=== PATIENT | female | born 1945 | race Caucasian/White ===

== ENCOUNTER → 2016-08-20 | Outpatient (CLI) | payer MEDICARE, MEDICAID ==
[~2016-08-20] MED LIST: CIPRO 500MG TA500 MG PO; COMBIVENT RESPI1 SPR IH; LEVSIN0.125 M1 PO; NICODERM C21 MG/24 H TD; PREDNISONE 20MG20 MG PO; SYMBICORT1 AE1 IH; TESSALON PERLE100 MG PO; TRAMADOL 50MG T50 MG PO
[2016-08-20 10:13] LABS: HEMOGLOBIN 14.4 g/dL (12.2-16.2); LYMPH # 1.4 K/mm3 (0.7-4.5); LYMPH % 25.4 % (10-50.0)
[2016-08-20 11:23] LABS: BUN 11 mg/dL (7-18)
[2016-08-20 11:27] LABS: GFR (ESTIMATED) 82 ML/MIN (59-)
== END ==
LOC: LAB 10:02
PROVIDERS: Nurse Practitioner Family
DX: I49.9 Cardiac arrhythmia, unspecified (principal); I10 Essential (primary) hypertension

== ENCOUNTER 2016-12-11 17:30 | Emergency (ER) | payer MEDICARE, MEDICAID ==
[~2016-12-11] VITALS: Ht 162.6 cm; Wt 56.2 kg
--- OUTSIDE RECORDS SUMMARY | 2016-12-11 17:36 | External Medical Summary Rpt ---
Author Author [employer] Organization [employer] Address Unknown Phone Unavailable Purpose Continuity of Care Document - through 2016
--- OUTSIDE RECORDS SUMMARY | 2016-12-11 17:36 | External Medical Summary Rpt ---
Demographics Preferred Language Rwandan Marital Status Unknown Sabianism Affiliation Unknown Race Unknown Ethnic Group Unknown Author Author , Organization [employer] Address Unknown Phone Unavailable Purpose Continuity of Care Document - through 2016 Immunization No patient found.
--- OUTSIDE RECORDS SUMMARY | 2016-12-11 17:36 | External Medical Summary Rpt ---
Author Author [employer] Greer, [employer] Organization [employer] Address Unknown Phone Unavailable
--- OUTSIDE RECORDS SUMMARY | 2016-12-11 17:36 | External Medical Summary Rpt ---
Demographics Preferred Language Finnish Marital Status Unknown Moravian Affiliation Unknown Race Unknown Ethnic Group Unknown Author Author , Organization [employer] Address Unknown Phone Unavailable Purpose Continuity of Care Document - through 2016 Immunization No patient found.
--- OUTSIDE RECORDS SUMMARY | 2016-12-11 17:36 | External Medical Summary Rpt ---
Author Author , Organization [employer] Address Unknown Phone Unavailable Purpose Continuity of Care Document - 11-23-2016 through 2016 Problems Code Diagnosis DOS Provider Status K76.89 OTHER 11-23-2016 SPECIFIED DISEASES OF LIVER
[2016-12-11] MEDS ORDERED: ZITHROMAX Z PA250 MG PO (17:57)
[2016-12-11] MEDS ORDERED: MEDROL 4MG. DOSE4 MG PO (17:57)
--- NOTE | 2016-12-11 17:58 | Urgent Treatment Center Report ---
History of Present Issue Date/Time Seen by Provider 12/11/16 6298 Visit Reason Pt arrived:Walked Presenting Problem:PT STATES SHE BEGAN FEELING BAD MONDAY. STATES ACHES, LEG WEAKNESS, RIGHT RIB PAIN FROM COUGHING, PRODUCTIVE COUGH. STATES NOT EATING WELL DUE TO COUGH AND DRY HEAVES FROM COUGHING. ALSO STATES RUNNY NOSE AND HEADACHE. Location if Accident: Onset of symptoms date/time:/ or onset unknown for:MEDICAL HX UNKNOWN Have you (or family members/close friends) recently traveled outside the [place]? N If Yes, where/when: Have you had exposure to infectious disease within the past month? TB? Other? Specify: Patient state that she has not felt well in a couple of days, states that she just feels achy all over States that she has been havig a dry cough and it makes her hurt sometimes in her ribs. States that she has been having runny nose and headache State that she has been blowing "green snot" for several days now and continues to feel worse so she thought she better come in and get checked ALLERGIES Coded Allergies: No Known Allergies (07/31/15) Home Medications Reported Medications BUDESONIDE/FORMOTEROL FUMARATE (Symbicort 160-4.5 Mcg Inhaler) 1 PUFF IH BID #10 ALBUTEROL/IPRATROPIUM (Combivent Respimat Inhal Smilax) 1 PUFF IH DAILY #4 History Medical History General CAD? No Angina: No [place]: No Hypertension? Yes Hyperlipidemia? No CHF? No DVT? No PE? No COPD? Yes Asthma? Yes Anemia? No GERD? No Gastric ulcers? No GI Bleed? No Hernia? Yes Thyroid Problems? No Hypothyroidism? No CVA? No Seizures? No Diabetes? No Renal Insuffiency? No UTI? No Stones? No BPH? No GB Disease: No Nephritic Syndrome? No Asplenia? No Hepatitis? No Sickle Cell Disease? No Arthritis? No Migraines? No Cataracts? No Glaucoma? No MRSA? No HIV? No TB? No Anxiety? No Depression? No Cancer? No More? Yes Additional hx: PLEURISY, ASTHMA Immunization HX DT/Tetanus UNKNOWN Flu 2014-16FSN Pneumonia Received In Past Surgical Hx Previous Surgery?Y BACK SX 2009 HYSTERECTOMY Hernia Repair Family History Family HX Diabetes No CAD Yes Hypertension No Hyperlipidemia No Cancer Yes TB No Social History Smoking Hx Smoker: Current Every Day Smoker Tobacco: Yes Type Cigarettes Packs/day < 1 Pack Alcohol Alcohol: No Review of Systems All Other Systems Reviewed and Negative Constitutional fever ENT nose discharge, nose congestion, throat pain. Respiratory cough Comment cough, congestion, nasal drainage for several days that has not improved Physical Exam Vital Signs Vital Signs Date Time Temp Pulse Resp B/P Pulse O2 O2 Flow FiO2 Ox Delivery Rate 12/11 1739 101.4 110 20 122/71 92 General Appearance normal appearance, WD/WN, no apparent distress Ear, Nose, Throat sinus pain/drainage, nasal congestion, throat red, irritated, greenish yellow drainage from nose Respiratory Status Yes: trachea midline, chest symmetrical, non tender chest. No: respiratory distress. 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 Patient aware of importance and still refused Medical Decision Making LABS/Meds/Orders Pt receiving controlled substance in ED? No Departure Departure Time of Disposition 1754 Disposition DC Home or Self Care(routine) Clinical Impression Primary Impression: Upper respiratory infection Qualifiers: URI type: unspecified URI Qualified Code: J06.9 - Acute upper respiratory infection, unspecified Condition STABLE Referrals Birdie SHARMA,Cayetano Olson (Family): 3 Days-Call Office if no improvement in symptoms Patient Instructions Cough, DI for Nasal Congestion Additional Instructions * Monitor Temp. Tylenol and/or Ibuprofen as needed. ER if fever is no less than 101 despite alternating Tylenol and Ibuprofen * Encourage fluids, water, Gatorade, powerade * Warm salt water gargles for throat irritation *Warm fluids *Sore throat lozenges *Sleep elevated *humidifier or vaporizer Follow up IMMEDIATELY for new or worsening of symptoms OR no noticeable improvement over the next 48-72 hours. 911 immediately for any life threatening symptoms such as chest pain or difficulty breathing Discharge Counseling Counseled pt/family regarding diagnosis, test results, medications/RX, home care, follow up needs Prescriptions Current Visit Scripts Azithromycin (Zithromycin (Z-SVEN) 250MG Tab) 250 MG PO DAILY #6 TAB TAKE TWO (2) TABLETS ON DAY 1, THEN ONE (1) TABLET DAY #2 THRU #5 Methylprednisolone (Medrol Dose Sven) 4 MG PO UD #1 SVEN TAKE DIRECTED ON PACKAGING at 1806
--- NOTE | 2016-12-11 17:58 | Urgent Treatment Center Report ---
History of Present Issue Date/Time Seen by Provider 12/11/16 0492 Visit Reason Pt arrived:Walked Presenting Problem:PT STATES SHE BEGAN FEELING BAD MONDAY. STATES ACHES, LEG WEAKNESS, RIGHT RIB PAIN FROM COUGHING, PRODUCTIVE COUGH. STATES NOT EATING WELL DUE TO COUGH AND DRY HEAVES FROM COUGHING. ALSO STATES RUNNY NOSE AND HEADACHE. Location if Accident: Onset of symptoms date/time:/ or onset unknown for:MEDICAL HX UNKNOWN Have you (or family members/close friends) recently traveled outside the [place]? N If Yes, where/when: Have you had exposure to infectious disease within the past month? TB? Other? Specify: Patient state that she has not felt well in a couple of days, states that she just feels achy all over States that she has been havig a dry cough and it makes her hurt sometimes in her ribs. States that she has been having runny nose and headache State that she has been blowing "green snot" for several days now and continues to feel worse so she thought she better come in and get checked ALLERGIES Coded Allergies: No Known Allergies (07/31/15) Home Medications Reported Medications BUDESONIDE/FORMOTEROL FUMARATE (Symbicort 160-4.5 Mcg Inhaler) 1 PUFF IH BID #10 ALBUTEROL/IPRATROPIUM (Combivent Respimat Inhal [place]) 1 PUFF IH DAILY #4 History Medical History General CAD? No Angina: No [place]: No Hypertension? Yes Hyperlipidemia? No CHF? No DVT? No PE? No COPD? Yes Asthma? Yes Anemia? No GERD? No Gastric ulcers? No GI Bleed? No Hernia? Yes Thyroid Problems? No Hypothyroidism? No CVA? No Seizures? No Diabetes? No Renal Insuffiency? No UTI? No Stones? No BPH? No GB Disease: No Nephritic Syndrome? No Asplenia? No Hepatitis? No Sickle Cell Disease? No Arthritis? No Migraines? No Cataracts? No Glaucoma? No MRSA? No HIV? No TB? No Anxiety? No Depression? No Cancer? No More? Yes Additional hx: PLEURISY, ASTHMA Immunization HX DT/Tetanus UNKNOWN Flu 2014-16FSN Pneumonia Received In Past Surgical Hx Previous Surgery?Y BACK SX 2009 HYSTERECTOMY Hernia Repair Family History Family HX Diabetes No CAD Yes Hypertension No Hyperlipidemia No Cancer Yes TB No Social History Smoking Hx Smoker: Current Every Day Smoker Tobacco: Yes Type Cigarettes Packs/day < 1 Pack Alcohol Alcohol: No Review of Systems All Other Systems Reviewed and Negative Constitutional fever ENT nose discharge, nose congestion, throat pain. Respiratory cough Comment cough, congestion, nasal drainage for several days that has not improved Physical Exam Vital Signs Vital Signs Date Time Temp Pulse Resp B/P Pulse O2 O2 Flow FiO2 Ox Delivery Rate 12/11 1739 101.4 110 20 122/71 92 General Appearance normal appearance, WD/WN, no apparent distress Ear, Nose, Throat sinus pain/drainage, nasal congestion, throat red, irritated, greenish yellow drainage from nose Respiratory Status Yes: trachea midline, chest symmetrical, non tender chest. No: respiratory distress. 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 Patient aware of importance and still refused Medical Decision Making LABS/Meds/Orders Pt receiving controlled substance in ED? No Departure Departure Time of Disposition 1754 Disposition DC Home or Self Care(routine) Clinical Impression Primary Impression: Upper respiratory infection Qualifiers: URI type: unspecified URI Qualified Code: J06.9 - Acute upper respiratory infection, unspecified Condition STABLE Referrals Birdie SHARMA,Cayetano Olson (Family): 3 Days-Call Office if no improvement in symptoms Patient Instructions Cough, DI for Nasal Congestion Additional Instructions * Monitor Temp. Tylenol and/or Ibuprofen as needed. ER if fever is no less than 101 despite alternating Tylenol and Ibuprofen * Encourage fluids, water, Gatorade, powerade * Warm salt water gargles for throat irritation *Warm fluids *Sore throat lozenges *Sleep elevated *humidifier or vaporizer Follow up IMMEDIATELY for new or worsening of symptoms OR no noticeable improvement over the next 48-72 hours. 911 immediately for any life threatening symptoms such as chest pain or difficulty breathing Discharge Counseling Counseled pt/family regarding diagnosis, test results, medications/RX, home care, follow up needs Prescriptions Current Visit Scripts Azithromycin (Zithromycin (Z-SVEN) 250MG Tab) 250 MG PO DAILY #6 TAB TAKE TWO (2) TABLETS ON DAY 1, THEN ONE (1) TABLET DAY #2 THRU #5 Methylprednisolone (Medrol Dose Sven) 4 MG PO UD #1 SVEN TAKE DIRECTED ON PACKAGING at 1806
[2016-12-11 18:03] VITALS: BP 122/71
[2016-12-13] MEDS ORDERED: SPIRIVA HA1 PUFF/INH IH (23:07)
[2016-12-13] MEDS ORDERED: ASPIRIN 325MG325 MG PO (23:08)
[2016-12-14] MEDS ORDERED: CARVEDILOL6.25 M1 PO (07:33)
[2016-12-14] MEDS ORDERED: AMLO5TAB PO ×2 (07:34→11:12)
[2016-12-14] MEDS ORDERED: ALBUTEROL SULF0.5 ML IH (07:54)
[2016-12-14] MEDS ORDERED: VENTOLIN H0.09 MG/Ac IH (07:55)
== END 2016-12-11 18:04 | disposition home or self-care (01) ==
LOC: UTC 17:30
DX: J06.9 Acute upper respiratory infection, unspecified (principal); I10 Essential (primary) hypertension; Z72.0 Tobacco use; J44.9 Chronic obstructive pulmonary disease, unspecified

== ENCOUNTER 2017-06-09 10:06 | Inpatient (IN) | payer MEDICARE, MEDICAID ==
[~2017-06-09] VITALS: Ht 162.6 cm; Wt 60.9 kg
[~2017-06-09 10:06] MED LIST changes: +ALBUTEROL SULF0.5 ML IH; +AMLO5TAB PO; +ASPIRIN 325MG325 MG PO; +CARVEDILOL6.25 M1 PO; +MEDROL 4MG. DOSE4 MG PO; +SPIRIVA HA1 PUFF/INH IH; +VENTOLIN H0.09 MG/Ac IH; +ZITHROMAX Z PA250 MG PO
[2017-06-09 10:10] VITALS: BP 194/95
[2017-06-09] MEDS ORDERED: AMOXICILLIN 50500 MG PO (10:27)
--- OUTSIDE RECORDS SUMMARY | 2017-06-09 10:39 | External Medical Summary Rpt | CCD ---
Author Author , [employer] Organization [employer] Address Unknown Phone [email or web address] Purpose Continuity of Care Document - 12-13-2016 through 2016 Results Labs Lab Lab Date Result Refere Interp Status Commen Order Detail nces retati t Range on Magnesium SerPl-mCnc (12-20-2016 04:00) Magnesi 2.7 1.9-2.4 complet um 017 mg/dL ed SerPl-m 04:00 Cnc Ca-I SerPl ISE-sCnc (12-20-2016 04:00) Ca-I 4.8 4.6-5.1 complet SerPl 017 mg/dL ed ISE-sCn 04:00 c MDRO Wnd (12-19-2016 17:52) Bacteri NG016 complet a XXX 017 NO ed Anaerob 17:52 GROWTH e+Aerob IN <16 e Cult HOURS. L CC XXX NOTAP complet VC-aCnc 017 NOT ed 17:52 APPLICA BLE L Potassium SerPl-sCnc (12-19-2016 13:26) Potassi 5.1 3.7-4.8 complet um 017 mmol/L ed SerPl-s 13:26 Cnc Magnesium SerPl-mCnc (12-19-2016 04:41) Magnesi 2.6 1.9-2.4 complet um 017 mg/dL ed SerPl-m 04:41 Cnc Vancomycin Trough SerPl-mCnc (12-19-2016 04:41) Vancomy 11.6 10-20 complet kendra 017 ug/mL ed Trough 04:41 SerPl-m Cnc Magnesium SerPl-mCnc (12-18-2016 03:35) Magnesi 2.4 1.9-2.4 complet um 017 mg/dL ed SerPl-m 03:35 Cnc Hgb A1c MFr Bld (12-17-2016 11:20) Hgb A1c 5.6 % 4.7-6.0 complet MFr 017 ed Bld 11:20 Bacteria Bro Dutton Aerobe Cult (12-17-2016 08:30) Bacteri [id number] complet a XXX 017 5 ed Anaerob 08:30 Christina e+Aerob e Cult albican s (organi sm) SCT CALB CHRISTINA ALBICAN S L Bacteria XXX Anaerobe+Aerobe Cult (12-17-2016 07:38) Bacteri [id number] complet a XXX 017 06 No ed Anaerob 07:38 growth e+Aerob (qualif e Cult ier value) SCT NGB4 NO GROWTH DAY 4. L MDRO Wnd (12-17-2016 05:59) Bacteri [id number] complet a XXX 017 06 No ed Anaerob 05:59 growth e+Aerob (qualif e Cult ier value) SCT NG2 NO GROWTH DAY 2. L CC XXX NOTAP complet VC-aCnc 017 NOT ed 05:59 APPLICA BLE L Mycoplasma pneumoniae IgM Ab [Presence] in Serum by Immunoassay (12-15-2016 06:10) Mycopla NON-VIRIDIANA NONREAC complet sma 017 CTIVE TIVE ed pneumon 06:10 iae IgM Ab [Presen ce] in Serum by Immunoa ssay Gas panel in Arterial blood (12-13-2016 23:36) Arteria ACCEPTA complet l 017 BLE ed patency 23:36 Wrist artery --pre arteria l punctur e
--- OUTSIDE RECORDS SUMMARY | 2017-06-09 10:39 | External Medical Summary Rpt | CCD ---
Author Author , [employer] Organization [employer] Address Unknown Phone [email or web address] Purpose Continuity of Care Document - 12-13-2016 [...] MFr 017 ed Bld 11:20 Bacteria Bro Moro Aerobe Cult (12-17-2016 08:30) Bacteri [id number] complet a XXX 017 5 ed Anaerob 08:30 Christina e+Aerob e Cult albican s (organi sm) SCT CALB CHRISTINA ALBICAN S L Bacteria XXX Anaerobe+Aerobe Cult (12-17-2016 07:38) Bacteri [id number] complet a XXX 017 06 No ed Anaerob 07:38 growth e+Aerob (qualif e Cult ier value) SCT NGB4 NO GROWTH DAY 4. L MDRO Wnd (12-17-2016 05:59) Bacteri [id number] complet a XXX 017 06 No ed [...]
--- OUTSIDE RECORDS SUMMARY | 2017-06-09 10:40 | External Medical Summary Rpt | CCD ---
Author Author , [employer]ET[employer] Address Unknown Phone [email or web address] Immunization Name Date Rout CVX Reac Dose Comm Prov Is Faci e tion ent ider Refu lity Give sed n Tdap 11-1 115 999 Hist H201 No H201 , 9-20 oric Adso 13 al rbed Info rmat ion - Sour ce Unsp ecif ied Zost 11-1 121 999 Hist H201 No H201 er 9-20 oric 13 al Info rmat ion - Sour ce Unsp ecif ied Td 03-0 9 999 Hist H149 No H149 (jerica 5-19 oric lt), 97 al Info adso rmat rbed ion - Sour ce Unsp ecif ied
--- OUTSIDE RECORDS SUMMARY | 2017-06-09 10:40 | External Medical Summary Rpt | CCD ---
Author Author , CONNER PRIETO Address Unknown Phone [email or web address] Immunization Name Date Rout CVX Reac Dose [...]
--- OUTSIDE RECORDS SUMMARY | 2017-06-09 10:41 | External Medical Summary Rpt ---
Author Author [facility], [employer] Organization [employer] Address Unknown Phone Unavailable Results UPPER RESPIRATORY PANEL,PCR Observa Value Referen Units Interpr Notes Date tion ce etation Range Adenovi DETECTE NOT No Abnorma No December 15 iraida DNA D DETECTE informa l informa 2017 tion in tion in 10:05 [Presen source source AM ce] in data data Unspeci fied specime n by Probe & target amplifi cation method Bordete NOT NOT No No No December 15 lla DETECTE DETECTE informa informa informa 2017 pertuss D tion in tion in tion in 10:05 is DNA source source source AM [Presen data data data ce] in Unspeci fied specime n by Probe & target amplifi cation method Chlamyd NOT NOT No No No December 15 ophila DETECTE DETECTE informa informa informa 2017 pneumon D tion in tion in tion in 10:05 iae DNA source source source AM data data data [Presen ce] in Unspeci fied specime n by Probe & target amplifi cation method SARS NOT NOT No No No December 15 coronav DETECTE DETECTE informa informa informa 2017 irus D tion in tion in tion in 10:05 RNA source source source AM [Presen data data data ce] in Unspeci fied specime n by Probe & target amplifi cation method Human NOT NOT No No No December 15 coronav DETECTE DETECTE informa informa informa 2017 irus D tion in tion in tion in 10:05 HKU1 source source source AM RNA data data data detecti on by SARS NOT NOT No No No December 15 coronav DETECTE DETECTE informa informa informa 2017 irus D tion in tion in tion in 10:05 RNA source source source AM [Presen data data data ce] in Unspeci fied specime n by Probe & target amplifi cation method SARS NOT NOT No No No December 15 coronav DETECTE DETECTE informa informa informa 2017 irus D tion in tion in tion in 10:05 RNA source source source AM [Presen data data data ce] in Unspeci fied specime n by Probe & target amplifi cation method Influen NOT NOT No No No December 15 za DETECTE DETECTE informa informa informa 2017 virus A D tion in tion in tion in 10:05 H3 RNA source source source AM data data data [Presen ce] in Unspeci fied specime n by Probe & target amplifi cation method Influen NOT NOT No No No December 15 za DETECTE DETECTE informa informa informa 2017 virus A D tion in tion in tion in 10:05 H1 RNA source source source AM data data data [Presen ce] in Isolate by Probe & target amplifi cation method Influen NOT NOT No No No December 15 za DETECTE DETECTE informa informa informa 2017 virus A D tion in tion in tion in 10:05 H1 RNA source source source AM data data data [Presen ce] in Unspeci fied specime n by Probe & target amplifi cation method Influen NOT NOT No No No December 15 za DETECTE DETECTE informa informa informa 2017 virus B D tion in tion in tion in 10:05 RNA source source source AM [Presen data data data ce] in Unspeci fied specime n by Probe & target amplifi cation method Influen NOT NOT No No No December 15 za DETECTE DETECTE informa informa informa 2017 virus A D tion in tion in tion in 10:05 RNA source source source AM [Presen data data data ce] in Unspeci fied specime n by Probe & target amplifi cation method Human NOT NOT No No No December 15 metapne DETECTE DETECTE informa informa informa 2017 umoviru D tion in tion in tion in 10:05 s Ag source source source AM [Presen data data data ce] in Unspeci fied specime n Mycopla NOT NOT No No No December 15 sma DETECTE DETECTE informa informa informa 2017 pneumon D tion in tion in tion in 10:05 iae DNA source source source AM data data data [Presen ce] in Unspeci fied specime n by Probe & target amplifi cation method Parainf NOT NOT No No No December 15 luenza DETECTE DETECTE informa informa informa 2017 virus 1 D tion in tion in tion in 10:05 RNA source source source AM [Presen data data data ce] in Unspeci fied specime n by Probe & target amplifi cation method Parainf NOT NOT No No No December 15 luenza DETECTE DETECTE informa informa informa 2017 virus 2 D tion in tion in tion in 10:05 RNA source source source AM [Presen data data data ce] in Unspeci fied specime n by Probe & target amplifi cation method Parainf NOT NOT No No No December 15 luenza DETECTE DETECTE informa informa informa 2017 virus 3 D tion in tion in tion in 10:05 RNA source source source AM [Presen data data data ce] in Unspeci fied specime n by Probe & target amplifi cation method Parainf NOT NOT No No No December 15 luenza DETECTE DETECTE informa informa informa 2017 virus 4 D tion in tion in tion in 10:05 RNA source source source AM [Presen data data data ce] in Isolate by Probe & target amplifi cation method Rhinovi NOT NOT No No No December 15 iraida+Ent DETECTE DETECTE informa informa informa 2017 eroviru D tion in tion in tion in 10:05 s RNA source source source AM [Presen data data data ce] in Unspeci fied specime n by Probe & target amplifi cation method Respira NOT NOT No No No December 15 tory DETECTE DETECTE informa informa informa 2017 syncyti D tion in tion in tion in 10:05 al source source source AM virus data data data RNA [Presen ce] in Unspeci fied specime n by Probe & target amplifi cation method Mycoplasma pneumoniae IgM Ab [Presence] in Serum by Immunoassay Observa Value Referen Units Interpr Notes Date tion ce etation Range Mycopla NON-VIRIDIANA NONREAC No No No December 15 sma CTIVE TIVE informa informa informa 2017 pneumon tion in tion in tion in 6:10 AM iae IgM source source source Ab data data data [Presen ce] in Serum by Immunoa ssay Basic metabolic panel in Blood Observa Value Referen Units Interpr Notes Date tion ce etation Range Urea 7 - 18 mg/dL No No December 15 nitrogen informati informati 2016 6:10 [Mass/vol on in on in AM ume] in source source Serum or data data Plasma Calcium 8.5 - mg/dL Normal No December 15 [Mass/vol 10.1 informati 2016 6:10 ume] in on in AM Serum or source Plasma data Chloride 98 - 107 mmoL/L Normal No December 15 [Moles/vo informati 2016 6:10 lume] in on in AM Serum or source Plasma data Carbon 21.0 - mmoL/L Normal No December 15 dioxide, 32.0 informati 2016 6:10 total on in AM [Moles/vo source lume] in data Serum or Plasma Creatinin 0.55 - mg/dL No No December 15 e 1.02 informati informati 2016 6:10 [Mass/vol on in on in AM ume] in source source Serum or data data Plasma Creatinin 50 - 200 ML/MIN No No December 15 e renal informati informati 2016 6:10 clearance on in on in AM source source predicted data data by Cockcroft -Gault formula Estimated 59- ML/MIN No REFERENCE December 15 informati RANGE: 2017 6:10 glomerula on in >60 AM r source ML/MIN/1. filtratio data 73 SQUARE n rate METERSIf (GF this patient is -A merican, then multiply theresult by 1.210. Glucose 74 - 106 mg/dL High No December 15 [Mass/vol informati 2016 6:10 ume] in on in AM Serum or source Plasma data Potassium 3.5 - 5.1 mmoL/L Normal No December 15 informati 2016 6:10 [Moles/vo on in AM lume] in source Serum or data Plasma Sodium 136 - 145 mmoL/L Normal No December 15 [Moles/vo informati 2016 6:10 lume] in on in AM Serum or source Plasma data CBC W Auto Differential panel in Blood Observa Value Referen Units Interpr Notes Date tion ce etation Range Basophils 0 - 0.2 K/MM3 Normal No December 15 informati 2016 6:10 [#/volume on in AM ] in source Blood by data Automated count Basophils 0.1 - 2.0 % Normal No December 15 informati 2016 6:10 leukocyte on in AM s in source Blood by data Automated count Eosinophi 0.0 - 0.4 K/mm3 Normal No December 15 ls informati 2016 6:10 [#/volume on in AM ] in source Blood by data Automated count Eosinophi 0.1 - % Normal No December 15 ls/100 12.0 informati 2016 6:10 leukocyte on in AM s in source Blood by data Automated count Granulocy 1.8 - 7.8 K/mm3 Normal No December 15 laura informati 2016 6:10 [#/volume on in AM ] in source Blood by data Automated count Granulocy 37.0 - % Normal No December 15 laura/100 80.0 informati 2016 6:10 leukocyte on in AM s in source Blood by data Automated count Hematocri 37.0 - % Normal No December 15 t [Volume 47.0 informati 2016 6:10 on in AM Fraction] source of Blood data Hemoglobi 12.2 - g/dL Normal December 15 n 16.2 informati 2016 6:10 [Mass/vol on in AM ume] in source Blood data Lymphocyt 0.7 - 4.5 K/mm3 Normal No December 15 es informati 2016 6:10 [#/volume on in AM ] in source Unspecifi data ed specimen by Automated count Lymphocyt 10 - 50.0 % Normal No December 15 es informati 2016 6:10 [#/volume on in AM ] in source Unspecifi data ed specimen by Automated count Erythrocy 27 - 31.2 pg Normal No December 15 te mean informati 2016 6:10 corpuscul on in AM ar source hemoglobi data n [Entitic mass] Erythrocy 31.8 - g/dl Normal No December 15 te mean 35.4 informati 2016 6:10 corpuscul on in AM ar source hemoglobi data n concentra tion [Mass/vol ume] by Automated count Erythrocy 82.2 - fl Normal December 15 te mean 97.8 informati 2016 6:10 corpuscul on in AM ar volume source [Entitic data volume] by Automated count Monocytes 0.1 - 1.0 K/mm3 Normal No December 15 informati 2016 6:10 [#/volume on in AM ] in source Blood by data Automated count Monocytes 1.7 - 9.3 % Normal No December 15 informati 2017 6:10 leukocyte on in AM s in source Blood by data Automated count Platelet 7.4 - fl Low No December 15 mean 10.4 informati 2016 6:10 volume on in AM [Entitic source volume] data in Blood by Automated count Platelets 142 - 424 K/mm3 Normal No December 15 informati 2017 6:10 [#/volume on in AM ] in source Blood data Erythrocy 4.2 - 5.4 M/mm3 Normal No December 15 laura informati 2016 6:10 [#/volume on in AM ] in source Amniotic data fluid Erythrocy 11.5 - % Normal No December 15 te 17.5 informati 2016 6:10 distribut on in AM ion width source [Entitic data volume] by Automated count Leukocyte 4.8 - K/MM3 Low No December 15 s 10.8 informati 2016 6:10 [#/volume on in AM ] in source Blood data Cardiac enzymes Observa Value Referen Units Interpr Notes Date tion ce etation Range Creatine 0 - 4.0 U/L Normal No December 14 kinase.MB informati 2016 6:30 /Creatine on in AM source kinase.to data bubba [Ratio] in Serum or Plasma Creatine 0.0 - 3.6 ng/mL High No December 14 kinase.MB informati 2016 6:30 on in AM [Mass/vol source ume] in data Serum or Plasma Creatine 26 - 192 U/L High No December 14 kinase informati 2016 6:30 [Enzymati on in AM c source activity/ data volume] in Serum or Plasma Troponin 0.00 - ng/mL Normal No December 14 I.cardiac 0.06 informati 2016 6:30 on in AM [Mass/vol source ume] in data Serum or Plasma Cardiac enzymes Observa Value Referen Units Interpr Notes Date tion ce etation Range Creatine 0 - 4.0 U/L Normal No December 14 kinase.MB informati 2016 4:03 /Creatine on in AM source kinase.to data bubba [Ratio] in Serum or Plasma Creatine 0.0 - 3.6 ng/mL No No December 14 kinase.MB informati informati 2017 4:03 on in on in AM [Mass/vol source source ume] in data data Serum or Plasma Creatine 26 - 192 U/L High No December 14 kinase informati 2016 4:03 [Enzymati on in AM c source activity/ data volume] in Serum or Plasma Troponin 0.00 - ng/mL Normal No December 14 I.cardiac 0.06 informati 2016 4:03 on in AM [Mass/vol source ume] in data Serum or Plasma Gas panel in Arterial blood Observa Value Referen Units Interpr Notes Date ti ce etation Range Base -2.4-+2.3 MMOL/L Normal No December 13 excess in inform2016 Arterial on in 11:36 PM blood source data Arteria ACCEPTA No No No No December 13 l BLE informa informa informa informa 2017 patency tion in tion in tion in tion in 11:36 Wrist source source source source PM artery data data data data --pre arteria l punctur e Bicarbona 22.0 - MMOL/L Normal No December 13 te 26.0 informati 2016 [Moles/vo on in 11:36 PM lume] in source Arterial data blood Oxygen No No No No December 13 content informati informati informati informati 2017 in on in on in on in on in 11:36 PM Arterial source source source source blood data data data data Carbon 35.0 - MMHG Normal No December 13 dioxide 45.0 2016 [Partial on in 11:36 PM pressure] source in data Arterial blood pH of 7.35 - MMOL/L Normal No December 13 Arterial 7.45 2016 blood on in 11:36 PM source data Oxygen 80 - 100 MMHG Low No December 13 [Partial informati 2016 pressure] on in 11:36 PM in source Arterial data blood Oxygen 90 - 100 % Normal No December 13 saturatio informati 2016 n.calcula on in 11:36 PM den from source oxygen data partial pressure in Arterial blood Carbon 23 - 27 MMOL/L Normal No December 13 dioxide, informati 2016 total on in 11:36 PM [Moles/vo source lume] in data Arterial blood Cardiac enzymes Observa Value Referen Units Interpr Notes Date ti ce etation Range Creatine 0 - 4.0 U/L Normal No December 13 kinase.MB inform2016 /Creatine on in 11:15 PM source kinase.to data bubba [Ratio] in Serum or Plasma Creatine 0.0 - 3.6 ng/mL Normal No December 13 kinase.MB informati 2016 on in 11:15 PM [Mass/vol source ume] in data Serum or Plasma Creatine 26 - 192 U/L High No December 13 kinase informati 2016 [Enzymati on in 11:15 PM c source activity/ data volume] in Serum or Plasma Troponin 0.00 - ng/mL Normal No December 13 I.cardiac 0.06 informati 2016 on in 11:15 PM [Mass/vol source ume] in data Serum or Plasma Comprehensive metabolic 2000 panel in Serum or Plasma Observa Value Referen Units Interpr Notes Date tion ce etation Range Albumin/G 1.1 - 1.8 No Low No December 13 lobulin informati informati 2016 [Mass on in on in 11:15 PM ratio] in source source Serum or data data Plasma Albumin 3.4 - 5.0 gm/dL Normal No December 13 [Mass/vol informati 2016 ume] in on in 11:15 PM Serum or source Plasma data Alkaline 46 - 116 U/L Normal No December 13 phosphata informati 2016 se on in 11:15 PM [Enzymati source c data activity/ volume] in Serum or Plasma Bilirubin 0.2 - 1.0 mg/dL Normal No December 13 .total informati 2016 [Mass/vol on in 11:15 PM ume] in source Serum or data Plasma Urea 7 - 18 mg/dL Normal No December 13 nitrogen informati 2016 [Mass/vol on in 11:15 PM ume] in source Serum or data Plasma Calcium 8.5 - mg/dL Normal No December 13 [Mass/vol 10.1 informati 2016 ume] in on in 11:15 PM Serum or source Plasma data Chloride 98 - 107 mmoL/L Low No December 13 [Moles/vo informati 2016 lume] in on in 11:15 PM Serum or source Plasma data Carbon 21.0 - mmoL/L Normal No December 13 dioxide, 32.0 informati 2016 total on in 11:15 PM [Moles/vo source lume] in data Serum or Plasma Creatinin 0.55 - mg/dL Normal No December 13 e 1.02 informati 2016 [Mass/vol on in 11:15 PM ume] in source Serum or data Plasma Creatinin 50 - 200 ML/MIN Low No December 13 e renal informati 2016 clearance on in 11:15 PM source predicted data by Cockcroft -Gault formula Estimated 59- ML/MIN Low REFERENCE December 13 RANGE: 2017 glomerula >60 11:15 PM r ML/MIN/1. filtratio 73 SQUARE n rate METERSIf (GF this patient is -A merican, then multiply theresult by 1.210. Globulin 1.3 - 3.2 gm/dL High No November 16 [Mass/vol informati 2017 ume] in on in 11:15 PM Serum source data Glucose 74 - 106 mg/dL High No December 13 [Mass/vol informati 2017 ume] in on in 11:15 PM Serum or source Plasma data Potassium 3.5 - 5.1 mmoL/L Normal No December 13 inform2016 [Moles/vo on in 11:15 PM lume] in source Serum or data Plasma Sodium 136 - 145 mmoL/L Low No December 13 [Moles/vo informati 2016 lume] in on in 11:15 PM Serum or source Plasma data Aspartate 15 - 37 U/L High No December 132016 aminotran on in 11:15 PM sferase source [Enzymati data c activity/ volume] in Serum or Plasma Alanine 12 - 78 U/L Normal No December 13 aminotran 2016 sferase on in 11:15 PM [Enzymati source c data activity/ volume] in Serum or Plasma Protein 6.4 - 8.2 gm/dL Normal No December 13 [Mass/vol informati 2017 ume] in on in 11:15 PM Serum or source Plasma data Lactate [Moles/volume] in Blood Observa Value Referen Units Interpr Notes Date tion ce etation Range Lactate 0.4 - 2.0 mmol/L Normal No December 13 [Moles/vo informati 2016 lume] in on in 11:15 PM Blood source data CBC W Auto Differential panel in Blood Observa Value Referen Units Interpr Notes Date tion ce etation Range Basophils 0 - 0.2 K/MM3 Normal No December 132016 [#/volume on in 11:15 PM ] in source Blood by data Automated count Basophils 0.1 - 2.0 % Normal No December 13 /2016 leukocyte on in 11:15 PM s in source Blood by data Automated count Eosinophi 0.0 - 0.4 K/mm3 Normal No December 13 ls 2016 [#/volume on in 11:15 PM ] in source Blood by data Automated count Eosinophi 0.1 - % Normal No December 13 ls/100 12.0 2016 leukocyte on in 11:15 PM s in source Blood by data Automated count Granulocy 1.8 - 7.8 K/mm3 Normal No December 13 laura informati 2016 [#/volume on in 11:15 PM ] in source Blood by data Automated count Granulocy 37.0 - % High No December 13 laura/100 80.0 inform2016 leukocyte on in 11:15 PM s in source Blood by data Automated count Hematocri 37.0 - % Normal No December 13 t [Volume 47.0 informati 2016 on in 11:15 PM Fraction] source of Blood data Hemoglobi 12.2 - g/dL Normal No December 13 n 16.2 informati 2016 [Mass/vol on in 11:15 PM ume] in source Blood data Lymphocyt 0.7 - 4.5 K/mm3 Low No December 13 es informati 2016 [#/volume on in 11:15 PM ] in source Unspecifi data ed specimen by Automated count Lymphocyt 10 - 50.0 % Normal No December 13 es informati 2016 [#/volume on in 11:15 PM ] in source Unspecifi data ed specimen by Automated count Erythrocy 27 - 31.2 pg Normal No December 13 te mean inform2016 corpuscul on in 11:15 PM ar source hemoglobi data n [Entitic mass] Erythrocy 31.8 - g/dl Normal No December 13 te mean 35.4 inform2016 corpuscul on in 11:15 PM ar source hemoglobi data n concentra tion [Mass/vol ume] by Automated count Erythrocy 82.2 - fl Normal No December 13 te mean 97.8 inform2016 corpuscul on in 11:15 PM ar volume source [Entitic data volume] by Automated count Monocytes 0.1 - 1.0 K/mm3 Normal No December 13 inform2016 [#/volume on in 11:15 PM ] in source Blood by data Automated count Monocytes 1.7 - 9.3 % Normal No December 13 /100 informati 2016 leukocyte on in 11:15 PM s in source Blood by data Automated count Platelet 7.4 - fl Low No December 13 mean 10.4 inform2016 volume on in 11:15 PM [Entitic source volume] data in Blood by Automated count Platelets 142 - 424 K/mm3 Low No December 13 informati 2016 [#/volume on in 11:15 PM ] in source Blood data Erythrocy 4.2 - 5.4 M/mm3 Normal No December 13 laura informati 2016 [#/volume on in 11:15 PM ] in source Amniotic data fluid Erythrocy 11.5 - % Normal No December 13 te 17.5 informati 2016 distribut on in 11:15 PM ion width source [Entitic data volume] by Automated count Leukocyte 4.8 - K/MM3 Normal No December 13 s 10.8 informati 2016 [#/volume on in 11:15 PM ] in source Blood data
--- NOTE | 2017-06-09 10:46 | RADIOLOGY REPORT PS360 ---
CHEST(2 VIEWS-NOT PORTABLE) HISTORY: Cough and congestion, shortness of breath and fatigue PNEUMONIA WORK UP ORDERING PHYSICIAN: PATIENT AGE: 72 years COMPARISON: 12/13/2016 FINDINGS: The cardiomediastinal silhouette and pulmonary vascularity are within normal limits. There is a calcified granuloma in the right upper lobe. Hyperinflation with attenuation of the peripheral pulmonary vessels once again noted consistent with COPD. There remains some nodularity in the left upper lobe superior to the aortic arch measuring approximately 19 mm as seen on the lateral view overall not significant changed. There is some patchy density in the left midlung which may be due to an area of atelectasis or infiltrate. The remaining lungs are clear. No acute bony anomalies. IMPRESSION: 1. Left upper lobe nodule as previously described does not appear significantly changed. 2. COPD with patchy infiltrate/pneumonia in the left midlung
[2017-06-09 10:56] LABS: HEMOGLOBIN 13.3 g/dL (12.2-16.2); LYMPH # 1.3 K/mm3 (0.7-4.5); LYMPH % 17.1 % (10-50.0)
--- NOTE | 2017-06-09 12:15 | Emergency Room Report ---
History of Present Illness Time Seen by 1038 Presenting Problem in Triage Pt arrived:Walked Presenting Problem:WENT TO SEE DR VARGAS FOR FOLLOW UP ON BREATHING TROUBLES. DR VARGAS SENT HER TO ED TO GET TEST RUN TO DETERMINE IF SHE HAS PNEUMONIA. Onset of symptoms date/time:06/02/17/ or onset unknown for:MEDICAL HX UNKNOWN Treatment Prior to Arrival: CLINIC CLERK Provided by: Sepsis Risk Assessment: Temp: 97.6 B/P: 174/87 MAP: 128 Pulse: 74 Resp: 22 Recent fever? N Clinical Suspician of Infection? N Mental Status: 1 - Regular (Normal Baseline) Sepsis Risk:Low Sepsis Risk Have you (or family members/close friends) recently traveled outside the [place]? N If Yes, where/when: Have you had exposure to infectious disease within the past month? N TB? Other? Specify: Source patient, RN notes reviewed Exam Limitations no limitations ALLERGIES Coded Allergies: No Known Allergies (06/09/17) Home Medications Active Scripts Azithromycin (Zithromycin (Z-ANA) 250MG Tab) 250 MG PO DAILY #6 TAB Prov: 12/11/16 Reported Medications BUDESONIDE/FORMOTEROL FUMARATE (Symbicort 160-4.5 Mcg Inhaler) 1 PUFF IH BID #10 Tiotropium [place] (Spiriva) 1 PUFF IH DAILY ASPIRIN (Aspirin 325MG) 325 MG PO DAILY Carvedilol 6.25 MG PO BID #60 Albuterol Sulfate (Albuterol Sulfate 0.5 Ml) 3 ML IH Q4H #180 Albuterol Sulfate (Ventolin Hfa) 0.09 MG IH Q6H #18 ALBUTEROL/IPRATROPIUM (Combivent Respimat Inhal [place]) 1 PUFF IH DAILY #4 Amoxicillin Trihydrate (Amoxicillin 500MG) 500 MG PO BID #20 History Medical History General CAD? No Angina: No [place]: No Hypertension? Yes Hyperlipidemia? No CHF? No DVT? No PE? No COPD? Yes Asthma? Yes Anemia? No GERD? No Gastric ulcers? No GI Bleed? No Hernia? Yes Thyroid Problems? No Hypothyroidism? No CVA? No Seizures? No Diabetes? No Renal Insuffiency? No End Stage Renal Disease? No UTI? No Stones? No BPH? No GB Disease: No Nephritic Syndrome? No Asplenia? No Hepatitis? No Sickle Cell Disease? No Arthritis? No Migraines? No Cataracts? No Glaucoma? No MRSA? No HIV? No TB? No Anxiety? No Depression? No Cancer? No More? Yes Additional hx: PLEURISY, ASTHMA, noncompliance Immunization Hx DT/Tetanus UNKNOWN Flu 2014-16FSN Pneumonia Received In Past Surgical Hx Previous Surgery?Y BACK SX 2009 HYSTERECTOMY Hernia Repair Family History Family Hx Diabetes No CAD Yes Hypertension No Hyperlipidemia No Cancer Yes TB No Social History Smoking Hx Smoker: Former Smoker Tobacco: No Type Cigarettes Packs/day < 1 Pack Alcohol Alcohol: No Review of Systems All Other Systems Reviewed and Negative Physical Exam Vital Signs Vital Signs Date Time Temp Pulse Resp B/P Pulse O2 O2 Flow FiO2 Ox Delivery Rate 06/09 1322 74 22 171/88 95 06/09 1214 75 22 166/87 94 06/09 1112 74 22 174/87 95 06/09 1010 97.6 77 22 194/95 94 General Appearance normal appearance, no apparent distress Respiratory Status No: respiratory distress. 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 No Results/Orders Laboratory Tests 06/09/17 1035: Lactic Acid 1.0 06/09/17 1035: Sodium 138, Potassium 4.0, Chloride 102, Carbon Dioxide 29, BUN 18, Creatinine 0.6, Estimated Creat Clear 78, Estimated GFR (MDRD) 98, Glucose 95, Calcium 9.1, Total Bilirubin 0.5, AST 23, ALT 27, Alkaline Phosphatase 98, Total Protein 7.1, Albumin 3.7, Globulin 3.4 H, Albumin/Globulin Ratio 1.1, WBC 7.9, RBC 4.50, Hgb 13.3, Hct 40.6, MCV 90.1, RDW 14.2, Plt Count 235, MPV 7.8, Gran % 71.5, Gran # 5.6, Lymphocytes % 17.1, Monocytes % 6.7, Eosinophils % 4.1, Basophils % 0.7, Lymphocytes # 1.3, Monocytes # 0.5, Eosinophils # 0.3, Basophils # 0.1, PUBS MCHC 32.7, MCH 29.5 Current Medication Orders Sig/Jessica Start time Last Medication Dose Route Stop Time Status Admin Sodium Chloride 10 ML PRN PRN 06/09 1030 AC IV 06/10 1022 Orders Procedure Date/time Status Decision to admit 06/09 1336 Active ARTERIAL BLOOD GAS REQUEST 06/09 1229 Active ARTERIAL BLOOD GAS REQUEST 06/09 1216 Active IV SALINE LOCK 06/09 1024 Active CULTURE, BLOOD 06/09 1024 Active LACTIC ACID 06/09 1024 Complete CBC WITH AUTO DIFF 06/09 1024 Complete CHEM 12 PROFILE 06/09 1024 Complete Departure Departure Time of Disposition 1349 Disposition Still a Patient Clinical Impression Primary Impression: LLL pneumonia Qualifiers: Pneumonia type: due to unspecified organism Qualified Code: J18.1 - Lobar pneumonia, unspecified organism Secondary Impressions: Acute exacerbation of chronic obstructive pulmonary disease (COPD) Condition STABLE Referrals Liliane Rivera APRN (Family) Additional Instructions Being admitted to Dr. Vargas as an acute admission as she has failed outpt therapy Discharge Counseling Counseled pt/family regarding diagnosis, test results, medications/RX, follow up needs ED Critical Care Critical Care No If Critical Care minutes are documented, the time involved in the performance of seperately reportable procedures was not counted toward critical care time documented. I directly delivered medical care to this critically ill and/or injured patient. Timely evaluation and treatment was necessary to address the significant organ system(s) dysfunction present in this patient. at 1353
--- OUTSIDE RECORDS SUMMARY | 2017-06-09 13:41 | External Medical Summary Rpt | CCD ---
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 I10 Essential 01-02-2017 (primary) hypertensio n I95.9 Hypotension 01-02-2017 , unspecified J15.9 Unspecified 01-02-2017 bacterial pneumonia J44.0 Chronic 01-02-2017 obstructive pulmonary disease with acute lower respiratory infection J44.1 Chronic 01-02-2017 obstructive pulmonary disease with (acute) exacerbatio n J96.21 Acute and 01-02-2017 chronic respiratory failure with hypoxia J96.22 Acute and 01-02-2017 chronic respiratory failure with hypercapnia R00.0 Tachycardia 01-02-2017 , unspecified R63.4 Abnormal 01-02-2017 weight loss Z99.81 Dependence 01-02-2017 on supplementa l oxygen J18.9 Pneumonia, 12-16-2016 unspecified organism J98.4 Other 12-16-2016 disorders of lung J96.20 Acute and 12-15-2016 chronic respiratory failure, unspecified whether with hypoxia or hypercapnia Results Labs Lab Lab Date Result Refere [...] MFr 017 ed Bld 11:20 Bacteria Bro [place] Aerobe Cult (12-17-2016 08:30) Bacteri [id number] complet a XXX 017 5 ed Anaerob 08:30 Christina e+Aerob e Cult albican s (organi sm) SCT CALB CHRISTINA ALBICAN S L Bacteria XXX Anaerobe+Aerobe Cult (12-17-2016 07:38) Bacteri [id number] complet a XXX 017 06 No ed Anaerob 07:38 growth e+Aerob (qualif e Cult ier value) SCT NGB4 NO GROWTH DAY 4. L MDRO Wnd (12-17-2016 05:59) Bacteri [id number] complet a XXX 017 06 No ed [...]
--- OUTSIDE RECORDS SUMMARY | 2017-06-09 13:41 | External Medical Summary Rpt | CCD ---
Author Author , [employer] Organization [employer] Address Unknown Phone [email or web address] Purpose Continuity of Care Document - [...] MFr 017 ed Bld 11:20 Bacteria Bro [place] Aerobe Cult (12-17-2016 08:30) Bacteri [id number] complet a XXX 017 5 ed Anaerob 08:30 Christina e+Aerob e Cult albican s (organi sm) SCT CALB CHRISTINA ALBICAN S L Bacteria XXX Anaerobe+Aerobe Cult (12-17-2016 07:38) Bacteri [id number] complet a XXX 017 06 No ed Anaerob 07:38 growth e+Aerob (qualif e Cult ier value) SCT NGB4 NO GROWTH DAY 4. L MDRO Wnd (12-17-2016 05:59) Bacteri [id number] complet a XXX 017 06 No ed [...]
--- OUTSIDE RECORDS SUMMARY | 2017-06-09 13:42 | External Medical Summary Rpt | CCD ---
Author Author , [facility] PRIETO Address Unknown Phone [email or web address] Immunization Name Date Rout CVX Reac Dose [...]
--- OUTSIDE RECORDS SUMMARY | 2017-06-09 13:42 | External Medical Summary Rpt | CCD ---
Author Author , [facility] PRIETO Address Unknown Phone [email or web address] Immunization Name Date Rout CVX Reac Dose [...]
--- OUTSIDE RECORDS SUMMARY | 2017-06-09 13:43 | External Medical Summary Rpt ---
Author Author [employer] Percy, [employer] Address Unknown Phone Unavailable Results Lactate [Moles/volume] in Blood Observa Value Referen Units Interpr Notes Date tion ce etation Range Lactate 0.4 - 2.0 mmol/L Normal No Jun 09 [Moles/vo informati 2017 lume] in on in 10:35 AM Blood source data Comprehensive metabolic 2000 panel in Serum or Plasma Observa Value Referen Units Interpr Notes Date tion ce etation Range Albumin/G 1.1 - 1.8 No Normal No Jun 09 lobulin informati informati 2016 [Mass on in on in 10:35 AM ratio] in source source Serum or data data Plasma Albumin 3.4 - 5.0 gm/dL Normal No Jun 09 [Mass/vol informati 2017 ume] in on in 10:35 AM Serum or source Plasma data Alkaline 46 - 116 U/L Normal No Jun 09 phosphata informati 2016 se on in 10:35 AM [Enzymati source c data activity/ volume] in Serum or Plasma Bilirubin 0.2 - 1.0 mg/dL Normal No Jun 09 .total informati 2016 [Mass/vol on in 10:35 AM ume] in source Serum or data Plasma Urea 7 - 18 mg/dL Normal No Jun 09 nitrogen informati 2016 [Mass/vol on in 10:35 AM ume] in source Serum or data Plasma Calcium 8.5 - mg/dL Normal No Jun 09 [Mass/vol 10.1 informati 2017 ume] in on in 10:35 AM Serum or source Plasma data Chloride 98 - 107 mmoL/L Normal No Jun 09 [Moles/vo informati 2017 lume] in on in 10:35 AM Serum or source Plasma data Carbon 21.0 - mmoL/L Normal No Jun 09 dioxide, 32.0 informati 2017 total on in 10:35 AM [Moles/vo source lume] in data Serum or Plasma Creatinin 0.55 - mg/dL Normal No Jun 09 e 1.02 informati 2017 [Mass/vol on in 10:35 AM ume] in source Serum or data Plasma Creatinin 50 - 200 ML/MIN Normal No Jun 09 e renal 2016 clearance on in 10:35 AM source predicted data by Cockcroft -Gault formula Estimated 59- ML/MIN No REFERENCE Jun 09 informati RANGE: 2017 glomerula on in >60 10:35 AM r source ML/MIN/1. filtratio data 73 SQUARE n rate METERSIf (GF this patient is -A merican, then multiply theresult by 1.210. Globulin 1.3 - 3.2 gm/dL High No Jun 09 [Mass/vol informati 2016 ume] in on in 10:35 AM Serum source data Glucose 74 - 106 mg/dL Normal No Jun 09 [Mass/vol informati 2016 ume] in on in 10:35 AM Serum or source Plasma data Potassium 3.5 - 5.1 mmoL/L Normal No Jun 092016 [Moles/vo on in 10:35 AM lume] in source Serum or data Plasma Sodium 136 - 145 mmoL/L Normal No Jun 09 [Moles/vo informati 2016 lume] in on in 10:35 AM Serum or source Plasma data Aspartate 15 - 37 U/L Normal No Jun 092016 aminotran on in 10:35 AM sferase source [Enzymati data c activity/ volume] in Serum or Plasma Alanine 12 - 78 U/L Normal No Jun 09 aminotran 2016 sferase on in 10:35 AM [Enzymati source c data activity/ volume] in Serum or Plasma Protein 6.4 - 8.2 gm/dL Normal No Jun 09 [Mass/vol informati 2016 ume] in on in 10:35 AM Serum or source Plasma data CBC W Auto Differential panel in Blood Observa Value Referen Units Interpr Notes Date tion ce etation Range Basophils 0 - 0.2 K/MM3 Normal No Jun 092016 [#/volume on in 10:35 AM ] in source Blood by data Automated count Basophils 0.1 - 2.0 % Normal No Jun 092016 leukocyte on in 10:35 AM s in source Blood by data Automated count Eosinophi 0.0 - 0.4 K/mm3 Normal No Jun 09 ls 2016 [#/volume on in 10:35 AM ] in source Blood by data Automated count Eosinophi 0.1 - % Normal No Jun 09 ls/100 12.0 2016 leukocyte on in 10:35 AM s in source Blood by data Automated count Granulocy 1.8 - 7.8 K/mm3 Normal No Jun 09 laura 2016 [#/volume on in 10:35 AM ] in source Blood by data Automated count Granulocy 37.0 - % Normal No Jun 09 laura/100 80.0 2016 leukocyte on in 10:35 AM s in source Blood by data Automated count Hematocri 37.0 - % Normal No Jun 09 t [Volume 47.0 2016 on in 10:35 AM Fraction] source of Blood data Hemoglobi 12.2 - g/dL Normal No Jun 09 n 16.2 inform2016 [Mass/vol on in 10:35 AM ume] in source Blood data Lymphocyt 0.7 - 4.5 K/mm3 Normal No Jun 09 es 2016 [#/volume on in 10:35 AM ] in source Unspecifi data ed specimen by Automated count Lymphocyt 10 - 50.0 % Normal No Jun 09 es 2016 [#/volume on in 10:35 AM ] in source Unspecifi data ed specimen by Automated count Erythrocy 27 - 31.2 pg Normal No Jun 09 te mean 2016 corpuscul on in 10:35 AM ar source hemoglobi data n [Entitic mass] Erythrocy 31.8 - g/dl Normal No Jun 09 te mean 35.4 2016 corpuscul on in 10:35 AM ar source hemoglobi data n concentra tion [Mass/vol ume] by Automated count Erythrocy 82.2 - fl Normal No Jun 09 te mean 97.8 2016 corpuscul on in 10:35 AM ar volume source [Entitic data volume] by Automated count Monocytes 0.1 - 1.0 K/mm3 Normal No Jun 092016 [#/volume on in 10:35 AM ] in source Blood by data Automated count Monocytes 1.7 - 9.3 % Normal No Jun 092016 leukocyte on in 10:35 AM s in source Blood by data Automated count Platelet 7.4 - fl Normal No Jun 09 mean 10.4 2016 volume on in 10:35 AM [Entitic source volume] data in Blood by Automated count Platelets 142 - 424 K/mm3 No Jun 09 informati informati 2016 [#/volume on in on in 10:35 AM ] in source source Blood data data Erythrocy 4.2 - 5.4 M/mm3 Normal No Jun 09 laura inform2016 [#/volume on in 10:35 AM ] in source Amniotic data fluid Erythrocy 11.5 - % Normal No Jun 09 te 17.5 informati 2016 distribut on in 10:35 AM ion width source [Entitic data volume] by Automated count Leukocyte 4.8 - K/MM3 Normal No Jun 09 s 10.8 informati 2016 [#/volume on in 10:35 AM ] in source Blood data UPPER RESPIRATORY PANEL,PCR Observa Value Referen Units Interpr Notes Date tion ce etation Range [place] DETECTE NOT No Abnorma No December 15 iraida DNA D DETECTE informa l informa 2016 tion in tion in 10:05 [Presen source source AM ce] in data data Unspeci fied specime n by Probe & target amplifi cation method [place] NOT NOT No No No December 15 lla DETECTE DETECTE informa informa informa 2016 pertuss D tion in tion in tion in 10:05 is DNA source source source AM [Presen data data data ce] in Unspeci fied specime n by Probe & target amplifi cation method Chlamyd NOT NOT No No No December 15 ophila DETECTE DETECTE informa informa informa 2016 pneumon D tion in tion in tion in 10:05 iae DNA source source source AM data data data [Presen ce] in Unspeci fied specime n by Probe & target amplifi cation method SARS NOT NOT No No No December 15 coronav DETECTE DETECTE informa informa informa 2016 irus D tion in tion in tion in 10:05 RNA source source source AM [Presen data data data ce] in Unspeci fied specime n by Probe & target amplifi cation method Human NOT NOT No No No December 15 coronav DETECTE DETECTE informa informa informa 2016 irus D tion in tion in tion in 10:05 HKU1 source source source AM RNA data data data detecti on by SARS NOT NOT No No No December 15 coronav DETECTE DETECTE informa informa informa 2016 irus D tion in tion in tion [...] Interpr Notes Date ti ce etation Range Urea 7 - 18 [...] - 0.2 K/MM3 Normal No December 15 inform2016 6:10 [#/volume on in AM ] in source Blood by data Automated count Basophils 0.1 - 2.0 % Normal No December 15 / informati 2016 6:10 leukocyte on in AM [...] Hemoglobi 12.2 - g/dL Normal No December 15 n 16.2 informati 2016 6:10 [...] Erythrocy 82.2 - fl Normal No December 15 te mean 97.8 informati 2016 6:10 corpuscul on in AM ar volume source [Entitic data volume] by Automated count Monocytes 0.1 - 1.0 K/mm3 Normal No December 15 informati 2016 6:10 [#/volume on in AM ] in source Blood by data Automated count Monocytes 1.7 - 9.3 % Normal No December 15 /100 informati 2016 6:10 leukocyte on in AM s in source Blood by data Automated count Platelet 7.4 - fl Low No December 15 mean 10.4 informati 2016 6:10 volume on in AM [Entitic source volume] data in Blood by Automated count Platelets 142 - 424 K/mm3 Normal No December 15 informati 2016 [...] Plasma Creatine 0.0 - 3.6 ng/mL No December 14 kinase.MB informati informati 2016 4:03 on in on in AM [Mass/vol [...] MMOL/L Normal No December 13 excess in informati 2016 Arterial on in 11:36 PM blood source [...] MMHG Normal No December 13 dioxide 45.0 inform2016 [Partial on in 11:36 PM pressure] source [...] Low No December 13 e renal informati 2017 clearance on in 11:15 PM source predicted data by Cockcroft -Gault formula Estimated 59- ML/MIN Low REFERENCE December 13 RANGE: 2017 glomerula >60 11:15 PM r ML/MIN/1. filtratio 73 SQUARE n rate METERSIf (GF this patient is -A merican, then multiply theresult by 1.210. Globulin 1.3 - 3.2 gm/dL High No December 13 [Mass/vol informati 2016 ume] in on in 11:15 PM Serum source data Glucose 74 - 106 mg/dL High No December 13 [Mass/vol informati 2017 ume] in on in 11:15 PM Serum or source Plasma data Potassium 3.5 - 5.1 mmoL/L Normal No December 132016 [Moles/vo on in 11:15 PM lume] in [...] - 2.0 % Normal No December 13 /100 2016 leukocyte on in 11:15 PM s in source Blood by data Automated count Eosinophi 0.0 - 0.4 K/mm3 Normal No December 13 ls 2016 [#/volume on in 11:15 PM ] in source Blood by data Automated count Eosinophi 0.1 - % Normal No December 13 ls/100 12.0 inform2016 leukocyte on in 11:15 PM s in source Blood by data Automated count Granulocy 1.8 - 7.8 K/mm3 Normal No December 13 laura informati 2016 [#/volume on in 11:15 PM ] in source Blood by data Automated count Granulocy 37.0 - % High No December 13 laura/100 80.0 informati 2016 leukocyte on in 11:15 PM [...] Normal No December 13 te mean 35.4 informati 2016 corpuscul on in 11:15 PM ar source hemoglobi data n concentra tion [Mass/vol ume] by Automated count Erythrocy 82.2 - fl Normal No December 13 te mean 97.8 informati 2016 corpuscul on in 11:15 PM ar volume source [Entitic data volume] by Automated count Monocytes 0.1 - 1.0 K/mm3 Normal No December 13 informati 2016 [#/volume on in 11:15 PM ] in source Blood by data Automated count Monocytes 1.7 - 9.3 % Normal No December 13 /100 informati 2016 leukocyte on in 11:15 PM s in source Blood by data Automated count Platelet 7.4 - fl Low No December 13 mean 10.4 informati 2016 volume on in 11:15 PM [Entitic source [...]
[2017-06-09 15:05] VITALS: BP 177/93
[2017-06-09 16:43] VITALS: BP 177/93
--- NOTE | 2017-06-09 18:00 | HISTORY AND PHYSICAL REPORT ---
Demographics: Admit date: 06/09/17 Chief complaint: Pneumonia PRIMARY DIAGNOSIS: PNEUMONIA Allergies: Coded Allergies: No Known Allergies (06/09/17) History of present illness: History of present illness: 72-year-old female seen in the office today with complaints of shortness of breath. Patient presented to the office with the pulse ox of 84 percent and shortness of breath. Patient was treated last week with IM steroids IM Rocephin and given oral antibiotics. Patient states she still has a couple days of antibiotics LEFT foot seemed to get worse. Patient has a history of pneumonia chronic obstructive pulmonary disease and was on the ventilator a few months ago. Patient admitted for pneumonia. Past medical history: Family HX Diabetes No CAD Yes Hypertension No Hyperlipidemia No Cancer Yes TB No Immunization HX DT/Tetanus UNKNOWN Flu Refused Pneumonia Refuses TB Test in last year No General CAD? No Angina: No [place]: No Hypertension? Yes Hyperlipidemia? No CHF? No DVT? No PE? No COPD? Yes Asthma? Yes Anemia? No GERD? No Gastric ulcers? No GI Bleed? No Hernia? Yes Thyroid Problems? No Hypothyroidism? No CVA? No Seizures? No Diabetes? No Renal Insuffiency? No UTI? No Stones? No BPH? No GB Disease: No Nephritic Syndrome? No Asplenia? No Hepatitis? No Sickle Cell Disease? No Arthritis? No Migraines? No Cataracts? No Glaucoma? No MRSA? No HIV? No TB? No Anxiety? No Depression? No Cancer? No More? Yes Additional hx: PLEURISY, ASTHMA, noncompliance Past Surgical HX Previous Surgery?Y BACK SX 2009 HYSTERECTOMY Hernia Repair Current home meds: Reported Medications BUDESONIDE/FORMOTEROL FUMARATE (Symbicort 160-4.5 Mcg Inhaler) 1 PUFF IH BID #10 Tiotropium [place] (Spiriva) 1 PUFF IH DAILY ASPIRIN (Aspirin 325MG) 325 MG PO DAILY ALBUTEROL/IPRATROPIUM (Combivent Respimat Inhal [place]) 1 PUFF IH DAILY #4 Amoxicillin Trihydrate (Amoxicillin 500MG) 500 MG PO BID #20 Social Hx: Smoking HX Tobacco No Type Cigarettes Packs/day < 1 PACK Are you/the child exposed to second-hand smoke: No Alcohol Alcohol: No Hx of Drug Use Drug Use? No Review of systems: Constitutional see HPI. Respiratory see HPI, shortness of breath, SOB with excertion, SOB at rest, wheezing. Cardiovascular No no symptoms reported Gastrointestinal/Abdominal No no symptoms reported Genitourinary No: no symptoms reported. Musculoskeletal No: no symptoms reported. Neurological No: see HPI. Exam: Lab data for last 24 hours: Laboratory Tests 06/09/17 1035: Lactic Acid 1.0 06/09/17 1035: Sodium 138, Potassium 4.0, Chloride 102, Carbon Dioxide 29, BUN 18, Creatinine 0.6, Estimated Creat Clear 78, Estimated GFR (MDRD) 98, Glucose 95, Calcium 9.1, Total Bilirubin 0.5, AST 23, ALT 27, Alkaline Phosphatase 98, Total Protein 7.1, Albumin 3.7, Globulin 3.4 H, Albumin/Globulin Ratio 1.1, WBC 7.9, RBC 4.50, Hgb 13.3, Hct 40.6, MCV 90.1, RDW 14.2, Plt Count 235, MPV 7.8, Gran % 71.5, Gran # 5.6, Lymphocytes % 17.1, Monocytes % 6.7, Eosinophils % 4.1, Basophils % 0.7, Lymphocytes # 1.3, Monocytes # 0.5, Eosinophils # 0.3, Basophils # 0.1, PUBS MCHC 32.7, MCH 29.5 Microbiology 06/09 1608 BLOOD: Anaerobic Blood Culture - RECD 06/09 1608 BLOOD: Aerobic Blood Culture - RECD 06/09 1538 BLOOD: Anaerobic Blood Culture - RECD 06/09 1538 BLOOD: Aerobic Blood Culture - RECD 06/09 1035 BLOOD: Anaerobic Blood Culture - RECD 06/09 1035 BLOOD: Aerobic Blood Culture - RECD 06/09 1035 BLOOD: Anaerobic Blood Culture - RECD 06/09 1035 BLOOD: Aerobic Blood Culture - RECD Admission vital signs: 1ST Vital Signs Result Date Time Pulse Ox 94 06/09 1010 B/P 194/95 06/09 1010 Temp 97.6 06/09 1010 Pulse 77 06/09 1010 Resp 22 06/09 1010 O2 Flow Rate 2 06/09 1430 O2 Delivery ROOM AIR 06/09 1505 Exam General appearance: normal appearance, alert, active, no acute distress Eyes: normal exam ENT: normal exam Neck: normal inspection, no carotid bruit, full range of motion Cardiovascular: normal exam, regular rate & rhythm Respiratory: on oxygen, diminished breath sounds, wheezing, cough ABD: normal exam, no rebound, soft, no tenderness Genitourinary: normal voiding & quantity Extremities: normal exam, moves all Musculoskeletal: normal exam Skin: normal exam, intact, warm Neuro: normal exam, alert, intact, oriented Plan: Problem List 1. Left upper lobe pneumonia Plan: zackery seen patient today in the office at 3900
[2017-06-09 19:54] VITALS: BP 174/89
[2017-06-09 21:50] LABS: CORONAVIRUS 229E NOT DETECTED (NOT DETECTE); CORONAVIRUS HKU 1 NOT DETECTED (NOT DETECTE); CORONAVIRUS NL63 NOT DETECTED (NOT DETECTE); CORONAVIRUS OC43 NOT DETECTED (NOT DETECTE); RHINOVIRUS/ENTEROVIRUS NOT DETECTED (NOT DETECTE)
[2017-06-09 23:32] VITALS: BP 152/70
[2017-06-10] VITALS (8 sets, daily range): BP systolic 129–176; BP diastolic 66–81
--- NOTE | 2017-06-10 08:22 | PHARMACY CLINIC NOTE ---
Patient Demographics Patient Demographics Admission date: 06/09/17 Date: 06/10/17 Time: 08 Allergies Coded Allergies: No Known Allergies (06/09/17) HEIGHT- FT: 5 IN: 4.00 K.145 VTE General Information Labs: Laboratory Tests 06/09 1035 Hematology Hgb (12.2 - 16.2 g/dL) 13.3 Hct (37.0 - 47.0 %) 40.6 Plt Count (142 - 424 K/mm3) 235 Disclaimer The following section includes nursing documentation that has been pulled in for pharmacy review. Patient's VTE score: 4 Patient's VTE Risk: LOW RISK Clinical trial participant? No VTE prophylaxis NQF [id number] VTE prophylaxis ordered? Yes Type of prophylaxis/treatment: JEAN-PAUL at 0822
--- NOTE | 2017-06-10 08:50 | ACUTE CARE PROGRESS NOTE (QUA) ---
Progress Notes Subjective Date 06/10/17 Time 0847 Note doing better Patient/family reports: feeling better Nursing reports: no complaints Objective Findings Last VS-Temp:98.1 B/P:147/70 Pulse:108 Resp:20 SaO2:99 OXYGEN Last weight lbs:128 oz:3 K.145 Method:Bed Scales Exam General appearance: awake Eyes: PERRLA ENT: dry mucous membranes Neck: no JVD Cardiovascular: regular rate & rhythm, murmur Respiratory: no respiratory distress, diminished breath sounds ABD: soft Genitourinary: no hematuria Extremities: moves all Musculoskeletal: equal muscle strength Skin: dry Neuro: alert, spray drier II-XII nml as tested Reviewed: allergies, medications, vital signs, lab results, radiology report Assessment/Plan Problem List 1. Left upper lobe pneumonia 2. Acute exacerbation of chronic obstructive pulmonary disease (COPD) Patient condition Improving Plan: continue current care This inpt stay is expected to cross 2 MNs from start of care Yes Comments: pt with slow improvement on abx at 0850
--- NOTE | 2017-06-10 08:50 | ACUTE CARE PROGRESS NOTE (QUA) ---
Progress Notes Subjective Date 06/10/17 Time 0847 Note doing better Patient/family reports: feeling better Nursing reports: no complaints Objective Findings Last VS-Temp:98.1 B/P:147/70 Pulse:108 Resp:20 SaO2:99 OXYGEN Last weight lbs:128 oz:3 K.145 Method:Bed Scales Exam General appearance: awake Eyes: PERRLA ENT: dry mucous membranes Neck: no JVD Cardiovascular: regular rate & rhythm, murmur Respiratory: no respiratory distress, diminished breath sounds ABD: soft Genitourinary: no hematuria Extremities: moves all Musculoskeletal: equal muscle strength Skin: dry Neuro: alert, dog boarder II-XII nml as tested Reviewed: allergies, medications, vital signs, lab results, radiology report Assessment/Plan Problem List 1. Left upper lobe pneumonia 2. Acute exacerbation of chronic obstructive pulmonary disease (COPD) Patient condition Improving Plan: continue current care This inpt stay is expected to cross 2 MNs from start of care Yes Comments: pt with slow improvement on abx at 0850
--- NOTE | 2017-06-10 21:05 | RADIOLOGY REPORT PS360 ---
CHEST(2 VIEWS-NOT PORTABLE) HISTORY: Follow-up pneumonia F/UP PNEUMONIA ORDERING PHYSICIAN: Cayetano Packer MD PATIENT AGE: 72 years COMPARISON: 06/09/2017 FINDINGS: There is chronic coarsening of the bronchovascular markings consistent with chronic peribronchial inflammatory change. Nodular opacity in the left upper lobe medially unchanged. Patchy density is once again noted in the left midlung which could be related to infiltrate and/or atelectatic change. There is a nodular density noted in the left midlung as well which could be related to pulmonary nodule or neoplasm. Chest CT may be of further value to determine if there is a nodule or infiltrate in this area. There is also suggestion of a 6 mm nodule in the right lower lobe. No acute bony anomalies. IMPRESSION: 1. Left midlung infiltrate with associated nodular opacity which may be better evaluated with CT if clinically warranted. 2. Right lower lobe nodule and left upper lobe nodule also noted
[2017-06-11] VITALS (7 sets, daily range): BP systolic 146–194; BP diastolic 64–94
--- NOTE | 2017-06-11 11:33 | RADIOLOGY REPORT PS360 ---
CT CHEST W/ CONTRAST INDICATION: Shortness of breath, pneumonia, pulmonary nodule NODULES ON CXR ORDERING PHYSICIAN: Cayetano Packer MD PATIENT AGE: 72 years COMPARISON: 12/15/2016 CT scan TECHNIQUE: Axial images are obtained with contrast. Sagittal and coronal reformatted images are reviewed as well. FINDINGS: Cavitating left upper lobe mass is once again noted measuring 1.8 cm. The overall size of the mass is not significant change. The internal cavitation is somewhat less prominent with some increased thickening of the medial wall of the lesion. There remains a 9 mm solid nodule in the right middle lobe laterally. The nodule may be slightly more prominent and is more well-defined. There is a new soft tissue mass in the right lower lobe laterally which measures 15 mm. Patchy infiltrate is present in the left lower lobe mid aspect laterally accounting for the infiltrate noted on the radiograph. There is no obvious nodule in this region. No effusions are evident. No mediastinal or hilar adenopathy. Thyroid gland is slightly large with a subcentimeter isodense in the left lobe. No destructive bony lesions apparent there is an unusual rounded calcific density within the right aspect of the descending thoracic aorta probably representing focal area of calcific plaque. IMPRESSION: 1. No radiographic abnormality of the left midlung corresponds to patchy area of infiltrate. 2. Persistent left upper lobe cavitating nodule and right upper lobe nodule. Overall no change in size but the character has somewhat with some increase thickening of the medial wall of the cavitating lesion. The right middle lobe nodule appears slightly more prominent 3. New 1.5 cm right lower lobe nodule. These findings are suspicious for metastatic disease with possible primary lung carcinoma in the left upper lobe 4. Centrilobular emphysematous change with scattered areas of fibrosis Multiple cystic lesions are present within the liver not significantly changed the largest in the right hepatic lobe posteriorly at 5.7 cm.
--- NOTE | 2017-06-11 14:02 | ACUTE CARE PROGRESS NOTE (QUA) ---
See Addendum Progress Notes Subjective Date 06/11/17 Time 1358 Patient/family reports: feeling worse, cough, shortness of breath Nursing reports: alert Objective Findings Vital Signs Date Time Temp Pulse Resp B/P Pulse O2 O2 Flow FiO2 Ox Delivery Rate 06/11 1300 3 06/11 1152 97.5 95 20 146/64 98 OXYGEN 06/11 1115 3 06/11 1052 97 OXYGEN 3 06/11 0900 3 06/11 0810 97.7 110 24 187/80 99 3 06/11 0803 97.7 110 24 187/80 99 OXYGEN 06/11 0643 3 06/11 0618 3 06/11 0618 98 OXYGEN 3 06/11 0531 2.5 06/11 0506 2.5 06/11 0406 2.5 06/11 0406 98.1 96 24 155/72 96 OXYGEN 2.5 06/11 0328 92 ROOM AIR 06/11 0321 2.5 06/11 0151 2.5 06/11 0053 2.5 06/10 2335 2.5 06/10 2335 97.4 101 20 171/81 100 OXYGEN 2.5 06/10 2320 2.5 06/10 2203 97.9 107 22 176/77 99 2.5 06/10 2201 2.5 06/10 2022 2.5 06/10 2000 2.5 06/10 1948 2.5 06/10 1948 97.9 107 22 176/77 99 OXYGEN 2.5 06/10 1829 2.5 06/10 1700 2.5 06/10 1600 2.5 06/10 1530 97.7 98 18 147/68 99 OXYGEN 2.5 06/10 1456 2.5 06/10 1400 2.5 Current Medications Methylprednisolone Sodium Succinate 60 MG Q8 IV Sodium Chloride 1,000 ML .STK-MED ONE IV (DC) Methylprednisolone Sodium Succinate 60 MG Q8 IV Levofloxacin/Dextrose 150 ML 0900 IV Albuterol/Ipratropium 3 ML Q6H6 INH Acetaminophen 650 MG Q4HP PRN PO Albuterol/Ipratropium 3 ML Q1HP PRN INH Guaifenesin/Dextromethorphan 10 ML Q4HP PRN PO Influenza Virus Vaccine Quadrival 0.5 ML PRN PRN IM Nicotine 21 MG DAILYP PRN TD Sodium Chloride 1,000 ML .Q10H IV Aspirin 325 MG DAILY PO Methylprednisolone Sodium Succinate 60 MG Q8 IV (DC) Tiotropium [place] 18 MCG DAILY IH Last VS-Temp:97.5 B/P:146/64 Pulse:95 Resp:20 SaO2:98 OXYGEN Last weight lbs:130 oz:5 K.109 Method:Bed Scales Exam General appearance: normal appearance, alert, active, awake Eyes: normal exam ENT: normal exam Neck: normal inspection, full range of motion Cardiovascular: normal exam, regular rate & rhythm Respiratory: no respiratory distress, trachea midline, on oxygen, wheezing ABD: normal exam, normal bowel sounds, soft Genitourinary: normal voiding & quantity Extremities: normal exam, moves all, no peripheral edema Musculoskeletal: normal exam Skin: normal exam, intact, warm Neuro: normal exam, alert, intact, no deficit, oriented Reviewed: allergies, medications, vital signs, lab results, radiology report, consult note Assessment/Plan Problem List 1. Left upper lobe pneumonia 2. Acute exacerbation of chronic obstructive pulmonary disease (COPD) Patient condition Stable Plan: continue current care, order additional tests This inpt stay is expected to cross 2 MNs from start of care Yes Comments: zackery will round later today Antibiotic Stewardship (2) Current Culture Results Microbiology 06/09 160 BLOOD: Anaerobic Blood Culture - RECD 06/09 1608 BLOOD: Aerobic Blood Culture - RECD at 1402
[2017-06-12 04:11] VITALS: BP 139/61
[2017-06-12 07:13] VITALS: BP 169/74
[2017-06-12 07:32] LABS: HEMOGLOBIN 12.6 g/dL (12.2-16.2); LYMPH # 0.7 K/mm3 (0.7-4.5); LYMPH % 6.1 % (10-50.0)
[2017-06-12 09:33] LABS: NEUTROPHILS 88 % (42-76)
--- NOTE | 2017-06-12 11:25 | ACUTE CARE PROGRESS NOTE (QUA) ---
Progress Notes Subjective Date 06/12/17 Time 1123 Note doing better Patient/family reports: feeling better Nursing reports: no complaints Objective Findings Last VS-Temp:98.0 B/P:169/74 Pulse:107 Resp:20 SaO2:99 OXYGEN Last weight lbs:134 oz:4 K.895 Method:Bed Scales Exam General appearance: alert, awake Eyes: PERRLA ENT: dry mucous membranes Neck: no JVD Cardiovascular: regular rate & rhythm Respiratory: no respiratory distress, on oxygen, rhonchi ABD: soft Genitourinary: normal voiding & quantity Extremities: moves all Musculoskeletal: equal muscle strength Skin: dry Neuro: alert, receiving dock checker II-XII nml as tested Reviewed: allergies, medications, vital signs, radiology report Assessment/Plan Problem List 1. Left upper lobe pneumonia 2. Acute exacerbation of chronic obstructive pulmonary disease (COPD) Patient condition Improving Plan: initiate discharge plan This inpt stay is expected to cross 2 MNs from start of care Yes Comments: pt wishes to see dr canada as outpt later this month at 1125
--- NOTE | 2017-06-12 11:25 | ACUTE CARE PROGRESS NOTE (QUA) ---
Progress Notes Subjective Date 06/12/17 Time 1123 Note doing better Patient/family reports: feeling better Nursing reports: no complaints Objective Findings Last VS-Temp:98.0 B/P:169/74 Pulse:107 Resp:20 SaO2:99 OXYGEN Last weight lbs:134 oz:4 K.895 Method:Bed Scales Exam General appearance: alert, awake Eyes: PERRLA ENT: dry mucous membranes Neck: no JVD Cardiovascular: regular rate & rhythm Respiratory: no respiratory distress, on oxygen, rhonchi ABD: soft Genitourinary: normal voiding & quantity Extremities: moves all Musculoskeletal: equal muscle strength Skin: dry Neuro: alert, harvest manager II-XII nml as tested Reviewed: allergies, medications, vital signs, radiology report Assessment/Plan Problem List 1. Left upper lobe pneumonia 2. Acute exacerbation of chronic obstructive pulmonary disease (COPD) Patient condition Improving Plan: initiate discharge plan This inpt stay is expected to cross 2 MNs from start of care Yes Comments: pt wishes to see dr canada as outpt later this month at 1125
[2017-06-12] MEDS ORDERED: PREDNISONE 10MG10 MG PO (11:28)
[2017-06-12] MEDS ORDERED: LEVAQUIN500 MG PO (11:28)
--- NOTE | 2017-06-12 11:31 | DISCHARGE SUMMARY STANDARD ---
Demographics Admit date: 06/09/17 Discharge date: 06/12/17 History of present illness History of present illness 72-year-old female seen in the office today with complaints of shortness of breath. Patient presented to the office with the pulse ox of 84 percent and shortness of breath. Patient was treated last week with IM steroids IM Rocephin and given oral antibiotics. Patient states she still has a couple days of antibiotics LEFT foot seemed to get worse. Patient has a history of pneumonia chronic obstructive pulmonary disease and was on the ventilator a few months ago. Patient admitted for pneumonia. Hospital Course Hospital Course: pt with slow but steady improvement with pul toilet and ivf and abx with abn ct which was discussed with pt and will follow as op- she had stablilized and finish abx as op Discharge diagnoses Problem List 1. Left upper lobe pneumonia 2. Acute exacerbation of chronic obstructive pulmonary disease (COPD) Medications Medications: Discharge meds are as noted. Follow up Follow up in office in: 5 DAYS with: Liliane Rivera APRN Comment: will see this week for follow up and also she will see pulmonary as op at 1136
[2017-06-12 11:41] VITALS: BP 181/85
[2017-06-12 14:07] VITALS: BP 181/85
== END 2017-06-12 13:35 | disposition home or self-care (01) | DRG 190 ==
LOC: ER 10:06 → 2ND 13:38
PROVIDERS: Emergency Medicine; General Practice
DX: J44.0 Chronic obstructive pulmonary disease with (acute) lower respiratory infection (principal); J18.9 Pneumonia, unspecified organism; J44.1 Chronic obstructive pulmonary disease with (acute) exacerbation; Z72.0 Tobacco use; I10 Essential (primary) hypertension
CPT/HCPCS: G0238; Q9967